=== PATIENT | male | born 1970 | race Caucasian/White ===

== ENCOUNTER 2018-04-01 23:38 | Emergency (ER) | payer OTHER ==
[2018-04-02] MEDS: CEPHALEXIN 500 MG CAP PO (00:46)
[2018-04-02] MEDS: IBUPROFEN 600 MG TAB PO (00:46)
== END 2018-04-02 00:50 | disposition home or self-care (01) ==
LOC: M ED 23:38
DX: S60.511A Abrasion of right hand, initial encounter (principal); L08.9 Local infection of the skin and subcutaneous tissue, unspecified; M79.89 Other specified soft tissue disorders; X58.XXXA Exposure to other specified factors, initial encounter; Y92.89 Other specified places as the place of occurrence of the external cause
CPT/HCPCS: 99283

== ENCOUNTER 2021-07-11 11:08 | Emergency (ER) | payer OTHER ==
[~2021-07-11] VITALS: Ht 180.3 cm; Wt 63.6 kg
[2021-07-11 11:08] VITALS: BP 118/79
[~2021-07-11 11:08] MED LIST: IBUP-1022 PO; KEFL500C17 PO
== END 2021-07-11 13:22 | disposition left against medical advice (07) ==
LOC: M ED 11:08
DX: Z53.29 Procedure and treatment not carried out because of patient's decision for other reasons (principal)

== ENCOUNTER 2022-10-03 13:21 | Emergency (ER) | payer OTHER ==
[~2022-10-03] VITALS: Ht 180.3 cm; Wt 66.2 kg
[2022-10-03] MEDS ORDERED: NS 1,000 ML IV ONE (14:10)
[2022-10-03 14:57] LABS: OSMOLALITY SERUM 286 MOSM/KG (275-295)
[2022-10-03 15:01] LABS: HEMATOCRIT 41.5 % (42.0-52.0); HEMOGLOBIN 14.1 g/dl (13.5-17.5); LYMPH % 26.6 % (24.0-44.0); MEAN CORPUSCULAR HEMOGLOBIN 30.5 pg (27.0-33.0); MEAN CORPUSCULAR VOLUME 89.6 fl (80.0-96.0); NEUTROPHILS % 57.8 % (36.0-66.0); PLATELET COUNT, AUTOMATED 369 10^3/uL (150-450); RED BLOOD COUNT 4.63 10^6/uL (4.30-6.10); WHITE BLOOD COUNT 9.3 10^3/uL (4.0-10.0)
[2022-10-03 15:02] LABS: BASO # 0.1 10^3/uL (0.0-0.2); BASO % 0.9 % (0.0-1.0); EOS # 0.2 10^3/uL (0.0-0.5); EOS % 2.3 % (0.0-3.0); LYMPH # 2.5 10^3/uL (1.5-5.0); MONO # 1.1 10^3/uL (0.0-0.8); NEUTROPHILS # 5.4 10^3/uL (1.5-8.5)
[2022-10-03 15:14] LABS: ETHYL ALCOHOL (ETHANOL) < 0.003 % (0.000-0.010)
[2022-10-03 15:15] LABS: ACETAMINOPHEN LEVEL < 2.0 UG/ML (10.0-20.0)
[2022-10-03 15:16] LABS: SALICYLATE LEVEL < 3.0 MG/DL (<30)
[2022-10-03 15:18] LABS: THYROID STIMULATING HORMONE 1.514 uIU/ML (0.55-4.78)
[2022-10-03 15:21] LABS: ALBUMIN 4.5 G/DL (3.2-5.2); ALKALINE PHOSPHATASE 95 U/L (46-116); ALT/SGPT 22 U/L (7.0-40); AST/SGOT 58 U/L (<34); BILIRUBIN,DIRECT 0.2 MG/DL (<0.4); CPK CREATINE PHOSPHOKINASE 359 U/L (46-171); TOTAL PROTEIN 7.6 G/DL (5.7-8.2)
[2022-10-03] MEDS ORDERED: ISOVUE-370 76% 100ML VIAL As Ordered ONE (15:23)
[2022-10-03 15:37] LABS: RSV AMPLIFICATION NEGATIVE (NEGATIVE)
[2022-10-03 17:11] VITALS: BP 135/81
[2022-10-03 17:58] LABS: BARBITURATES URINE NEGATIVE (NEGATIVE); BENZODIAZEPINES URINE NEGATIVE (NEGATIVE); METHADONE URINE NEGATIVE (NEGATIVE); OPIATES URINE NEGATIVE (NEGATIVE); PHENCYCLIDINE URINE NEGATIVE (NEGATIVE)
[2022-10-03 18:14] LABS: AMPHETAMINES LEVEL URINE POSITIVE (NEGATIVE); CANNABINOIDS URINE POSITIVE (NEGATIVE); COCAINE METABOLITE URINE POSITIVE (NEGATIVE)
== END 2022-10-03 17:42 | disposition left against medical advice (07) ==
LOC: M ED 13:21
DX: G45.9 Transient cerebral ischemic attack, unspecified (principal); F11.29 Opioid dependence with unspecified opioid-induced disorder; F17.200 Nicotine dependence, unspecified, uncomplicated; F12.90 Cannabis use, unspecified, uncomplicated
CPT/HCPCS: 36415; 70450; 70496; 70498; 71045; 80047; 80076; 80143; 80307; 81001; 82077; 82140; 82550; 83605; 83930; 84443; 85025; 87631; 93005; 93041; 94760; 99285; Q9967

== ENCOUNTER 2024-12-29 11:14 | Emergency (ER) | payer OTHER ==
[~2024-12-29] VITALS: Ht 175.3 cm; Wt 88.6 kg
[~2024-12-29 11:14] MED LIST changes: -IBUP-1022 PO; +IBUP600T42 PO
[2024-12-29 12:38] LABS: BASO # 0.1 10^3/uL (0.0-0.2); BASO % 0.8 % (0.0-1.0); EOS # 0.1 10^3/uL (0.0-0.5); EOS % 1.4 % (0.0-3.0); LYMPH # 1.7 10^3/uL (1.5-5.0); LYMPH % 18.2 % (24.0-44.0); MONO # 1.0 10^3/uL (0.0-0.8); MONO % 10.8 % (2.0-8.0); NEUTROPHILS # 6.4 10^3/uL (1.5-8.5); NEUTROPHILS % 68.6 % (36.0-66.0); PLATELET COUNT, AUTOMATED 314 10^3/uL (150-450)
[2024-12-29] MEDS ORDERED: ISOVUE-370 76% 100 ML VIAL As Ordered ONE (13:12)
[2024-12-29 13:14] VITALS: TEMP 97.8
[2024-12-29 13:17] LABS: ALT/SGPT 30.0 U/L (7.0-40); AST/SGOT 45.0 U/L (<34)
[2024-12-29 14:15] LABS: KETONE, URINE AUTO RFX NEGATIVE (NEGATIVE); LEUKOCYTE ESTERASE UR AUTO RFX NEGATIVE (NEGATIVE); MUCUS, URINE RFX SMALL (NEGATIVE); NITRITE, URINE AUTO RFX NEGATIVE (NEGATIVE); RBC, URINE AUTO RFX 3 /HPF (0-3); SQUAM EPITHELIAL CELL UR AURFX 2 /HPF (0-6); WBC, URINE AUTO RFX 1 /HPF (0-3)
[2024-12-29] MEDS ORDERED: METR-265 PO (14:48)
[2024-12-29] MEDS ORDERED: CIPR-249 PO (14:48)
[2024-12-29 14:54] VITALS: BP 118/74; O2SAT 96
== END 2024-12-29 15:04 | disposition home or self-care (01) ==
LOC: M ED 11:14
DX: K52.9 Noninfective gastroenteritis and colitis, unspecified (principal); K76.0 Fatty (change of) liver, not elsewhere classified; I70.0 Atherosclerosis of aorta; K42.9 Umbilical hernia without obstruction or gangrene; M51.35 Other intervertebral disc degeneration, thoracolumbar region; F11.10 Opioid abuse, uncomplicated
CPT/HCPCS: 36415; 74177; 80047; 80076; 81001; 83690; 85025; 99284; Q9967